=== PATIENT | female | born 1960 | race Caucasian/White ===

== ENCOUNTER 2017-09-23 12:28 | Emergency (ER) | payer BC, SELFPAY ==
[2017-09-23 12:29] VITALS: BP 120/75; PULSE 96; RESP 22; TEMP 36.7; O2SAT 99; BMI 25.9
--- NOTE | 2017-09-23 12:39 | ED.RN ---
PT C/O FEELING VERY WARM PT GIVEN A COOL WASHCLOTH. PT STATES I'M GOING TO BE SICK. BACKBOARD TIPPED ON THE LEFT SIDE. PT VOMITING INTO EMESIS BAG, ON BED, AND ON FLOOR. IMMEDIATELY AFTER PT STATES I FEEL A MILLION TIMES BETTER
--- NOTE | 2017-09-23 12:59 | EKG12_ITS ---
Test Reason : SYNCOPE Blood Pressure : / mmHG Vent. Rate : 091 BPM Atrial Rate : 091 BPM P-R Int : 152 ms QRS Dur : 092 ms QT Int : 350 ms P-R-T Axes : 081 019 042 degrees QTc Int : 430 ms Normal sinus rhythm Normal ECG Confirmed by LAKIA ESPINOZA, RYAN ([id number]), website/blog editor PAZ CLEARY ([id number] on 09/26/2017 2:23:36 PM Referred By: Ferny Loo Confirmed By:RYAN DORMAN MD
--- NOTE | 2017-09-23 12:59 | ED.VISSUMM ---
- ER Visit Summary Date of Service: 09/23/17 Chief Complaint: Passed out History of Present Illness: The patient is a 57 F past medical history of hypothyroidism. And high cholesterol. He states she lost stress going on at work. When she got up this morning she is a little nauseated. Had eaten much today at all. Was at work dealing with stress and many customers. Said she felt nauseated and then remembers waking up passed out on the floor. She denied any headache, chest pain or shortness of breath. She was brought brought in by squad backboard and c-collar and she denies any neck pain or numbness or weakness to her upper or lower extremities. Otherwise she has been doing well. No recent fevers, chest pain, abdominal pain, shortness of breath or headaches. When she fell she did hit her arm on something and has a bruise around her elbow. Physical Examination: Middle-aged female threw up once in the ER now feeling better. Her vital signs are stable afebrile. Her pulse ox is 9 9% on room air no signs of hypoxia. She is in no distress. Family is at bedside. H EENT exam atraumatic nontender. Pupils round reactive light. Moist mucous membranes no dental injury. C-spine nontender trachea midline. I did remove the c-collar. Back completely nontender. Lungs clear to auscultation bilaterally. Heart regular rhythm no murmur rate in the 90s. Chest wall nontender. Abdomen soft nontender. She is moving all 4 extremities. Neurovascular intact. About her right elbow she is a moderate sized bruise. There is no gross bony deformity. She has full range of motion of both upper and lower extremities. And specifically the right elbow wrist and hand. Neurologically she is awake and alert. No focal motor deficits. GCS of 15. NIH is 0. Bilateral reservation clerk strength. Bilateral fingertip to nose. Bilateral 5-5 dorsi plantar flexion. Test Results: Chest x-ray no acute abnormality normal cardiac silhouette. Right elbow x-ray no acute abnormality old healed right humerus fracture. Both read by myself and the radiologist. EKG sinus rhythm rate 91 no acute abnormality. No signs of dysrhythmia or ischemia. White count is elevated at 14.6 this may be from her vomiting. I do not think she has a acute bacterial infection. He did age of [age]. Chemistries normal normal gap and creatinine troponin normal. Emergency Department Course and Treatment: Patient with a syncopal episode most likely vasovagal. We will check screening labs along with an EKG and x-rays. Treatment Plan: Exam patient is doing well at 1400. She threw up once in the ER and is feeling better. Her exam currently is benign we went over all of her tests. Disposition: discharge Impression: Acute vasovagal syncope This note was generated with [employer] dictation software. It may contain incorrect words, spelling, and punctuation that were not noted in review of the chart prior to signing ED Disposition - Plan for ED Patient: Chief Complaint: Syncope Referrals: Dennis Torres MD [Primary Care Provider] -
--- NOTE | 2017-09-23 13:02 | ED.DCSUM_ITS ---
- ER Visit Summary Date of Service: 09/23/17 Chief Complaint: Passed out History of Present Illness: The patient is a 57 F past medical history of hypothyroidism. And high cholesterol. He states she lost stress going on at work. When she got up this morning she is a little nauseated. Had eaten much today at all. Was at work dealing with stress and many customers. Said she felt nauseated and then remembers waking up passed out on the floor. She denied any headache, chest pain or shortness of breath. She was brought brought in by squad backboard and c-collar and she denies any neck pain or numbness or weakness to her upper or lower extremities. Otherwise she has been doing well. No recent fevers, chest pain, abdominal pain, shortness of breath or headaches. When she fell she did hit her arm on something and has a bruise around her elbow. Physical Examination: Middle-aged female threw up once in the ER now feeling better. Her vital signs are stable afebrile. Her pulse ox is 9 9% on room air no signs of hypoxia. She is in no distress. Family is at bedside. H EENT exam atraumatic nontender. Pupils round reactive light. Moist mucous membranes no dental injury. C-spine nontender trachea midline. I did remove the c-collar. Back completely nontender. Lungs clear to auscultation bilaterally. Heart regular rhythm no murmur rate in the 90s. Chest wall nontender. Abdomen soft nontender. She is moving all 4 extremities. Neurovascular intact. About her right elbow she is a moderate sized bruise. There is no gross bony deformity. She has full range of motion of both upper and lower extremities. And specifically the right elbow wrist and hand. Neurologically she is awake and alert. No focal motor deficits. GCS of 15. NIH is 0. Bilateral automation tester strength. Bilateral fingertip to nose. Bilateral 5- 5 dorsi plantar flexion. Test Results: Chest x-ray no acute abnormality normal cardiac silhouette. Right elbow x-ray no acute abnormality old healed right humerus fracture. Both read by myself and the radiologist. EKG sinus rhythm rate 91 no acute abnormality. No signs of dysrhythmia or ischemia. White count is elevated at 14.6 this may be from her vomiting. I do not think she has a acute bacterial infection. He did age of [age]. Chemistries normal normal gap and creatinine troponin normal. Emergency Department Course and Treatment: Patient with a syncopal episode most likely vasovagal. We will check screening labs along with an EKG and x-rays. Treatment Plan: Exam patient is doing well at 1400. She threw up once in the ER and is feeling better. Her exam currently is benign we went over all of her tests. Disposition: discharge Impression: Acute vasovagal syncope This note was generated with [employer] dictation software. It may contain incorrect words, spelling, and punctuation that were not noted in review of the chart prior to signing ED Disposition - Plan for ED Patient: Chief Complaint: Syncope Referrals: Dnenis Torres MD [Primary Care Provider] -
--- NOTE | 2017-09-23 13:03 | RAD_ITS ---
STUDY: X-RAY - RIGHT ELBOW REASON FOR EXAM: Female, 57 years old. Elbow injury following a fall. TECHNIQUE: 3 view(s) of the elbow. COMPARISON: None. FINDINGS: Healed fracture of the mid humeral shaft with residual deformity. No acute fractures seen. Normal radiocapitellar and ulnotrochlear articulations. The soft tissue structures are unremarkable. RAD/Elbow min 3 Views IMPRESSION: No acute fracture is seen. Healed fracture of the humeral shaft with post fracture deformity. Electronically Signed: Jass Benoit MD at 13:32 EDT Tel [phone], Service support ,
--- NOTE | 2017-09-23 13:14 | RAD_ITS ---
STUDY: X-RAY CHEST REASON FOR EXAM: Female, 57 years old. Syncopal episode. TECHNIQUE: Single AP portable view of the chest. COMPARISON: None. FINDINGS: The lungs are clear and expanded. Scattered calcified granulomas. There is no demonstrated pleural abnormality. Normal size heart. Normal mediastinum and chayo. Normal visualized pulmonary arteries. Normal visualized aortic arch and descending thoracic aorta. Normal visualized thoracic spine. Normal visualized ribs, clavicles, and shoulders. There is no demonstrated abnormality of the visualized soft tissue structures of the upper abdomen. RAD/Chest 1 View (Portable) IMPRESSION: Normal x-ray examination of the chest. Electronically Signed: Jass Benoit MD at 13:30 EDT Tel [phone], Service support ,
[2017-09-23 13:28] LABS: Absolute Lymphocyte Count 0.26 X10^3/ul (0.83-4.51); Absolute Neutrophil Count 13.9 X10^3/uL (2.0-7.7); Basophil# 0.02 X10^3/uL; Basophil% 0.1 % (0-1); Hematocrit 38.6 % (37-47); Hemoglobin 11.4 g/dl (12.0-15.0); Lymphocyte # 0.26 X10^3/ul (4.0); Lymphocyte % 1.8 % (19-41); Mean Corp Hgb Conc 29.5 g/gl (32-36); Mean Corpuscular Hgb 22.3 pg (27.0-32.0); Mean Corpuscular Volume 75.5 fL (81-99); Mean Platelet Vol. 9.5 fl (6.2-12.0); Monocyte% 2.7 % (0-10); Neutrophil # 13.93 X10^3/uL (2.7-7.7); Neutrophil % 95.3 % (47-70); Platelet Count 261 K/mm3 (150-450); RBC Distribution Width CV 16.6 % (11.6-14.6); RBC Distribution Width SD 44.4 fl (35.1-43.9); Red Blood Count 5.11 M/mm3 (4.2-5.4); White Blood Count 14.6 K/mm3 (4.4-11.0)
[2017-09-23 13:30] LABS: Differential Indicated SCAN CRITERIA MET; POSITIVE COUNT NO; POSITIVE DIFFERENTIAL YES; POSITIVE MORPHOLOGY NO
[2017-09-23 13:44] LABS: Anion Gap 4 (5-15); BUN 19 mg/dL (7-18); BUN/Creat Ratio 29.9 RATIO (10-20); Calcium,Total 8.8 mg/dL (8.5-10.1); Chloride 105 mmol/L (98-107); Creatinine, Serum 0.64 mg/dL (0.55-1.02); EST Glomerular Filtration Rate 103 mL/min (>60); Est Glom Filt Rate - Afr Amer 125 mL/min (>60); Glucose 125 mg/dL (74-106); Potassium 3.9 mmol/L (3.5-5.1); Sodium Level 139 mmol/L (136-145)
--- NOTE | 2017-09-23 14:14 | ED.DEP ---
ED Disposition - Plan for ED Patient: Disposition: Home or Assisted Living Chief Complaint: Syncope Instructions: ED Syncope Vasovagal Referrals: Dennis Torres MD [Primary Care Provider] - 3-5 Days if not improving Additional Instructions: Plenty fluids and rest. Return if feeling worse.
[2017-09-23 14:22] VITALS: BP 131/74; PULSE 83; RESP 20; O2SAT 97
--- NOTE | 2017-09-23 14:23 | ED.RN ---
THIS NURSE REVIEWED D/C INSTRUCTIONS WITH PT. PT VERBALIZED UNDERSTANDING OF INSTRUCTIONS. IV D/C. IV CATHETER INTACT. PT TOLERATED WELL. PT DENIES FURTHER NEEDS OR QUESTIONS AT THIS TIME
[2017-09-23 14:38] LABS: Red Cell Morphology NORM C+C NORMAL (NORM C&C)
== END 2017-09-23 14:24 | disposition home or self-care (01) ==
PROVIDERS: Emergency Provider Emergency Medicine; Family Provider Family Medicine; PCP Family Medicine
DX: R55 Syncope and collapse (principal); E03.9 Hypothyroidism, unspecified; E78.00 Pure hypercholesterolemia, unspecified; S50.01XA Contusion of right elbow, initial encounter; X58.XXXA Exposure to other specified factors, initial encounter; Y93.89 Activity, other specified; Y92.9 Unspecified place or not applicable
CPT/HCPCS: 71045; 73080; 80048; 84484; 85025; 93005; 99285; A4216

== ENCOUNTER → 2017-09-28 13:38 | Outpatient (CLI) | payer BC, SELFPAY ==
[2017-10-05 10:19] LABS: HPV Reflexed? NOT INDICATED
== END ==
PROVIDERS: Visit Provider Obstetrics & Gynecology
DX: Z12.4 Encounter for screening for malignant neoplasm of cervix (principal)
CPT/HCPCS: 88175; G0145

== ENCOUNTER → 2017-10-12 07:01 | Outpatient (CLI) | payer BC, SELFPAY ==
--- NOTE | 2017-10-12 07:07 | BI_ITS ---
MAMMOGRAPHY - BILATERAL SCREENING REASON FOR EXAM: Female, 57 years old. Routine annual screening examination. PERTINENT HISTORY: Non-contributory. TECHNIQUE: Digital bilateral breast kaitlynn (3D mammographic acquisition) in the CC and MLO projections. 2-D mediolateral oblique (MLO) and craniocaudad (CC) views of both breasts were obtained. CAD: Full Field Digital Mammography with Computer Added Detection was performed. COMPARISON: Comparison is made with prior study dated September 13, 2016 and March 11, 2014. FINDINGS: Breast Composition: The breasts are extremely dense, which lowers the sensitivity of mammography. There are no dominant masses or suspicious calcifications. No other significant abnormalities are identified. There has been no significant change since the prior study. BI/SCREENING MAMM (CAD), BILAT IMPRESSION: Stable bilateral screening mammogram. Yearly follow-up mammogram recommended. (A) ASSESSMENT CATEGORY: BIRADS Category 1: Negative. A letter regarding these results will be sent to the patient by the facility within 30 days. Approximately 10% of breast cancers are not detected by mammography. A normal mammogram should not delay biopsy of a clinically suspicious abnormality. [id number] Electronically Signed: Jass Benoit MD at 8:55 EDT Tel [phone], Service support ,
== END ==
PROVIDERS: Family Provider Family Medicine; PCP Family Medicine; Visit Provider Obstetrics & Gynecology
DX: Z12.31 Encounter for screening mammogram for malignant neoplasm of breast (principal)
CPT/HCPCS: 77063; 77067

== ENCOUNTER → 2017-10-24 08:03 | Outpatient (CLI) | payer BC, SELFPAY ==
[2017-10-24 10:34] LABS: Color, Urine Straw (Yellow); Glucose, Dipstick Normal (Normal); Ketone-Dipstick Negative (Negative); Leukocyte Esterase-Dipstick Negative /ul (Negative); Nitrite-Dipstick Negative (Negative); Occult Blood-Urine Negative /ul (Negative); Protein-Dipstick Negative (Negative); Urine Bilirubin Dipstick Negative (Negative); Urine Clarity Clear (Clear); Urine Urobilinogen Normal (Normal)
[2017-10-24 10:35] LABS: Absolute Lymphocyte Count 1.57 X10^3/ul (0.83-4.51); Absolute Neutrophil Count 4.2 X10^3/uL (2.0-7.7); Basophil# 0.05 X10^3/uL; Basophil% 0.8 % (0-1); Eosinophils% 1.6 % (0-5); Hematocrit 36.2 % (37-47); Hemoglobin 10.6 g/dl (12.0-15.0); Lymphocyte # 1.57 X10^3/ul (4.0); Lymphocyte % 24.6 % (19-41); Mean Corp Hgb Conc 29.3 g/gl (32-36); Mean Corpuscular Hgb 21.9 pg (27.0-32.0); Mean Corpuscular Volume 74.9 fL (81-99); Mean Platelet Vol. 9.8 fl (6.2-12.0); Monocyte# 0.45 X10^3/uL; Neutrophil # 4.22 X10^3/uL (2.7-7.7); POSITIVE COUNT NO; POSITIVE DIFFERENTIAL NO; POSITIVE MORPHOLOGY YES; Platelet Count 245 K/mm3 (150-450); RBC Distribution Width CV 15.9 % (11.6-14.6); RBC Distribution Width SD 43.7 fl (35.1-43.9); Red Blood Count 4.83 M/mm3 (4.2-5.4); White Blood Count 6.4 K/mm3 (4.4-11.0)
[2017-10-24 10:36] LABS: Differential Indicated SCAN CRITERIA MET
[2017-10-24 10:56] LABS: Albumin, Serum 3.5 g/dL (3.2-5.0); BUN 12 mg/dL (7-18); BUN/Creat Ratio 18.3 RATIO (10-20); Creatinine, Serum 0.66 mg/dL (0.55-1.02); EST Glomerular Filtration Rate 99 mL/min (>60); Est Glom Filt Rate - Afr Amer 120 mL/min (>60); Glucose 101 mg/dL (74-106); Protein, Total 7.2 g/dL (6.4-8.2)
[2017-10-24 10:57] LABS: ALB/GLOB Ratio 0.9 RATIO (0.9-2.4); AST(SGOT) 21 U/L (15-37); Alanine Aminotransfer ALT/SGPT 31 U/L (13-56); Alkaline Phosphatase 76 U/L (45-117); Anion Gap 6 (5-15); Bilirubin, Direct 0.11 mg/dL (0.00-0.30); Calcium,Total 9.2 mg/dL (8.5-10.1); Chloride 101 mmol/L (98-107); Cholesterol 166 mg/dL (200); Globulin 3.7 g/dL (2.2-4.2); High Density Lipoprotein 67 mg/dL; Potassium 4.8 mmol/L (3.5-5.1); Sodium Level 138 mmol/L (136-145); Thyroid Stim Hormone (TSH) 0.47 uIU/mL (0.358-3.74); Triglycerides 91 mg/dL; Very Low Density Lipoprotein 18 mg/dL (5-40)
[2017-10-24 11:03] LABS: Hypochromasia 1+; Microcytosis 1+; Platelet Estimate ADEQUATE (ADEQ)
== END ==
PROVIDERS: Family Provider Family Medicine; PCP Family Medicine; Visit Provider Family Medicine
DX: Z00.00 Encounter for general adult medical examination without abnormal findings (principal); E78.00 Pure hypercholesterolemia, unspecified; E03.9 Hypothyroidism, unspecified; E78.5 Hyperlipidemia, unspecified
CPT/HCPCS: 36415; 80053; 80061; 81002; 82248; 84443; 85025